=== PATIENT | female | born 1985 | race Caucasian/White ===

== ENCOUNTER 2020-01-18 13:15 | Outpatient (CLI) | payer BC ==
--- NOTE | 2020-01-18 15:57 | CT ---
CT OF THE LUMBAR SPINE WITHOUT CONTRAST: 01/18/20 INDICATION: 34-year-old female with history of low back pain on and off for many years but worsening over the las t nine months. There is tingling within both lower extremities and within the feet. COMPARISON: None. TECHNIQUE: Multiple CT images were obtained of the lumbar spine without IV contrast. Axial, lewis l and sagittal reformatted images were constructed from the raw data. FINDINGS: There is advanced loss of the normal disc space height at L4-5. There is vacuum disc phenomenon at L4 -5 and L5-S1. There is Modic end plate degenerative change at L4-5. No acute fracture is evident. The visualized aspects of the retroperitoneum and paravertebral soft tissues appear within normal patricia its. There is mild degenerative change of both SI joints. At the L5-S1 level, there is a broad based disc bulge with loss of disc space height and facet hypert rophy inducing moderate bilateral neural foraminal narrowing. At L4-5, there is a broad based disc osteophyte complex with facet hypertrophy likely inducting at le ast mild osseous central canal narrowing. There is moderate bilateral neural foraminal narrowing. At L3-4, there is a broad based bulge with facet hypertrophy inducing mild central canal narrowing wi th mild to moderate bilateral neural foraminal narrowing. At the L2-3 level, there is a mild broad based bulge likely inducing mild bilateral neural foraminal narrowing. At L1-2, there is no appreciable osseous central canal or neural foraminal narrowing. IMPRESSION: 1. Moderate spondylosis of the lumbar spine most pronounced at L3-4 through L4-5. 2. Mild central canal narrowing at L4-5. Moderate bilateral neural foraminal narrowing at L4-5 and L5-S1. 3. There is mild to moderate bilateral neural foraminal narrowing and mild central canal narrowi ng at L3-4. POS: [facility]
== END 2020-01-18 13:16 | disposition home or self-care (01) ==
LOC: TBSIIMAG 13:15
PROVIDERS: ATTEND Neurological Surgery
DX: M54.5 Low back pain (principal); M47.816 Spondylosis without myelopathy or radiculopathy, lumbar region; M48.061 Spinal stenosis, lumbar region without neurogenic claudication; M48.07 Spinal stenosis, lumbosacral region
CPT/HCPCS: 72131